=== PATIENT | female | born 1940 | race Hispanic/Latino ===

== ENCOUNTER 2019-06-03 17:05 | Observation (INO) | payer OTHER, MEDICARE ==
[~2019-06-03] VITALS: Ht 157.5 cm; Wt 40.9 kg
[~2019-06-03 17:05] MED LIST: ASPI-555 PO; CARB25TA3 PO; METO-408 PO; NITR0.4T50 SL; OMEP20TA25 PO; SIMV40TA59 PO; TOPI25CA5 PO
[2019-06-03] MEDS ORDERED: ONDANSETRON HCL 4 MG/2 ML VIAL ONE (17:45)
[2019-06-03] MEDS ORDERED: SODIUM CHLORIDE 0.9% 1000ML 1,000 ML IV ONE (17:46)
[2019-06-03 17:59] LABS: BASOPHILS % (AUTO) 0.3 % (0.0-5.0); EOSINOPHILS % (AUTO) 0.5 % (0.0-8.0); HEMATOCRIT 41.3 % (36-48); LYMPHOCYTES % (AUTO) 5.8 % (21.0-51.0); MEAN CORPUSCULAR HEMOGLOBIN 30.9 pg (27.0-33.0); MEAN CORPUSCULAR VOLUME 93.6 fL (79-99); MONOCYTES % (AUTO) 4.8 % (3.0-13.0); NEUTROPHILS % (AUTO) 88.6 % (40.0-77.0); PLATELET COUNT (AUTO) 152 K/uL (130-400); RED BLOOD CELL COUNT(AUTO) 4.41 MIL/uL (4.00-5.50); RED CELL DISTRIBUTION WIDTH 13.8 % (11.0-15.5); WHITE BLOOD COUNT (AUTO) 23.9 K/uL (4.8-10.8)
[2019-06-03 18:00] LABS: APPEARANCE,URINE Cloudy (CLEAR); BILIRUBIN,URINE Negative (NEGATIVE); COLOR,URINE Yellow (YELLOW); GLUCOSE, URINE (UA) Negative (NEGATIVE); KETONES,URINE 15 mg/dL (NEGATIVE); LEUKOCYTE ESTERASE ,URINE Trace (NEGATIVE); NITRATE,URINE Negative (NEGATIVE); OCCULT BLOOD,URINE Small (NEGATIVE); PROTEIN,URINE Trace mg/dL (NEGATIVE)
[2019-06-03 18:22] LABS: CREATININE 0.8 mg/dL (0.5-1.5); POTASSIUM 3.8 mmol/L (3.5-5.1)
[2019-06-03 18:26] LABS: ALBUMIN 3.7 g/dL (3.5-5.0); BACTERIA,URINE Few /HPF (None Seen); BILIRUBIN,TOTAL 0.7 mg/dL (0.2-1.0); CALCIUM OXALATE CRYSTALS,UR Moderate /LPF (None Seen); MUCUS,URINE Few LPF (None Seen); TOTAL PROTEIN, SERUM 6.7 g/dL (6.0-8.3)
[2019-06-03] MEDS ORDERED: IOHEXOL-350 75 ML VIAL IV ONE (19:00)
[2019-06-03] MEDS ORDERED: METRONIDAZOLE 500MG/100ML BAG 100 ML ONE (21:02)
[2019-06-03] MEDS: SODIUM CHLORIDE 0.9% 1000ML 1,000 ML IV SCH (21:30)
[2019-06-03] MEDS: LEVOFLOXACIN 500 MG/D5W 100 ML 100 ML IV SCH (22:00)
[2019-06-04] MEDS: METRONIDAZOLE 500MG/100ML BAG 100 ML IVPB SCH ×3 (02:00→18:11)
[2019-06-04] MEDS ORDERED: LEVOFLOXACIN 500 MG/D5W 100 ML 100 ML ONE (02:32)
[2019-06-04 04:27] LABS: BASOPHILS % (AUTO) 0.4 % (0.0-5.0); EOSINOPHILS % (AUTO) 1.3 % (0.0-8.0); HEMATOCRIT 34.4 % (36-48); LYMPHOCYTES % (AUTO) 10.8 % (21.0-51.0); MEAN CORPUSCULAR HEMOGLOBIN 31.3 pg (27.0-33.0); MEAN CORPUSCULAR HGB CONC 33.5 g/dL (32.0-36.0); MEAN CORPUSCULAR VOLUME 93.3 fL (79-99); MONOCYTES % (AUTO) 4.7 % (3.0-13.0); NEUTROPHILS % (AUTO) 82.8 % (40.0-77.0); PLATELET COUNT (AUTO) 132 K/uL (130-400); RED BLOOD CELL COUNT(AUTO) 3.69 MIL/uL (4.00-5.50); RED CELL DISTRIBUTION WIDTH 13.7 % (11.0-15.5); WHITE BLOOD COUNT (AUTO) 12.8 K/uL (4.8-10.8)
[2019-06-04 04:35] LABS: CREATININE 0.7 mg/dL (0.5-1.5); POTASSIUM 4.1 mmol/L (3.5-5.1)
[2019-06-04 04:40] LABS: ALBUMIN 2.7 g/dL (3.5-5.0); BILIRUBIN,TOTAL 0.6 mg/dL (0.2-1.0); TOTAL PROTEIN, SERUM 5.3 g/dL (6.0-8.3)
[2019-06-04] MEDS ORDERED: METRONIDAZOLE 500MG/100ML BAG 100 ML ONE (05:08)
[2019-06-04] MEDS ORDERED: SODIUM CHLORIDE 0.9% 1000ML 1,000 ML IV ONE (07:09)
[2019-06-04 08:20] VITALS: BP 117/68
[2019-06-04] MEDS ORDERED: ACETAMINOPHEN 325 MG TAB PO PRN ×2 (09:30)
[2019-06-04] MEDS ORDERED: MAG HYDROX/AL HYDROX/SIMETH ES 30 ML SUSP UDCUP PO PRN (09:30)
[2019-06-04] MEDS ORDERED: POTASSIUM CHLORIDE 20MEQ/100ML 100 ML IV PRN (09:30)
[2019-06-04] MEDS ORDERED: POTASSIUM CHLORIDE 20 MEQ ERTAB PO PRN (09:30)
[2019-06-04] MEDS ORDERED: DIPHENHYDRAMINE HCL 25 MG CAPSULE PO PRN (09:30)
[2019-06-04] MEDS ORDERED: DiphenhydrAMINE HCL 50 MG/ML VIAL IV PRN (09:30)
[2019-06-04] MEDS ORDERED: LIDOCAINE HCL-MPF 1% 2ML VIAL IJ PRN (09:30)
[2019-06-04] MEDS ORDERED: SIMV40TA59 PO (09:35)
[2019-06-04] MEDS ORDERED: CARB25TA3 PO (09:35)
[2019-06-04] MEDS ORDERED: PRAM0.25 PO (09:38)
[2019-06-04] MEDS ORDERED: AMAN100T PO (09:38)
[2019-06-04] MEDS ORDERED: METO5 PO (09:38)
[2019-06-04] MEDS: SODIUM CHLORIDE 0.9% 1000ML 1,000 ML IV SCH ×2 (09:58→20:32)
[2019-06-04 11:00] VITALS: BP 128/62
--- NOTE | 2019-06-04 13:00 | NUR ---
ORDER RECD FOR TRANSPORT INFO REVIEWED CHART; NOTE MADE OF INSURANCE. WLL DEFER THIS REQUEST; TOMORROW [facility] REP WILL COME- WILL ASK FOR SPECIFIC SERVICES AVAILABLE THROUGH [facility] INSURANCE Addendum: 06/04/19 at 1727 by KAREN CARBONE RN CM Amended: Links added.
--- NOTE | 2019-06-04 13:03 | NUR ---
DYSPHAGIA EVAL COMPLETED. -S/S OF ASPIRATION. RECOMMEND MECHANICAL SOFT/CHOPPED, THIN LIQUIDS; PILLS WHOLE WITH LIQUIDS. Addendum: 06/04/19 at 1304 by DALE AGUIRRE, [facility] Amended: Links added.
[2019-06-04] MEDS: METOCLOPRAMIDE 5 MG TABLET PO SCH ×2 (13:08→17:04)
[2019-06-04] MEDS ORDERED: METO25TA6 PO (14:11)
[2019-06-04] MEDS ORDERED: DIGO125T87 PO (14:11)
[2019-06-04] MEDS ORDERED: MIRT7.5T11 PO (14:11)
[2019-06-04] MEDS ORDERED: SIMV10TA6 PO (14:13)
[2019-06-04 16:00] VITALS: BP 127/91
[2019-06-04] MEDS ORDERED: PRAMIPEXOLE DI-HCL 0.25 MG TABLET PO SCH (17:00)
[2019-06-04 20:00] VITALS: BP 162/92
[2019-06-04] MEDS: METOPROLOL TARTRATE 25 MG TAB PO SCH ×2 (20:30→20:32)
[2019-06-04] MEDS: LEVOFLOXACIN 500 MG/D5W 100 ML 100 ML IV SCH (20:32)
[2019-06-04] MEDS ORDERED: SIMVASTATIN 10 MG TABLET PO SCH (21:00)
--- NOTE | 2019-06-04 22:00 | NUR ---
ACTIVITY Pt up ad graham,instructed to call for assistance,verbalized understanding.
[2019-06-05] VITALS: BP_SYST 134; BP_SYST 142; BP_DIAS 70; BP_DIAS 89
[2019-06-05] MEDS: METRONIDAZOLE 500MG/100ML BAG 100 ML IVPB SCH (01:52)
[2019-06-05 04:00] VITALS: BP 136/72
[2019-06-05 04:36] LABS: BASOPHILS % (AUTO) 0.6 % (0.0-5.0); EOSINOPHILS % (AUTO) 2.2 % (0.0-8.0); HEMATOCRIT 35.8 % (36-48); LYMPHOCYTES % (AUTO) 20.7 % (21.0-51.0); MEAN CORPUSCULAR HEMOGLOBIN 31.5 pg (27.0-33.0); MEAN CORPUSCULAR HGB CONC 33.5 g/dL (32.0-36.0); MONOCYTES % (AUTO) 6.6 % (3.0-13.0); NEUTROPHILS % (AUTO) 69.9 % (40.0-77.0); PLATELET COUNT (AUTO) 128 K/uL (130-400); RED CELL DISTRIBUTION WIDTH 13.5 % (11.0-15.5); WHITE BLOOD COUNT (AUTO) 8.5 K/uL (4.8-10.8)
[2019-06-05 04:46] LABS: CREATININE 0.6 mg/dL (0.5-1.5); POTASSIUM 3.5 mmol/L (3.5-5.1)
[2019-06-05] MEDS: METOCLOPRAMIDE 5 MG TABLET PO SCH ×2 (05:54→11:12)
[2019-06-05 07:00] VITALS: BP 134/70
[2019-06-05] MEDS ORDERED: LEVO500T2 PO (07:12)
[2019-06-05] MEDS ORDERED: METR250T PO (07:12)
[2019-06-05] MEDS ORDERED: CARBIDOPA PO SCH (09:00)
[2019-06-05] MEDS ORDERED: ENOXAPARIN SODIUM 30 MG/0.3 ML SQ SCH (09:00)
[2019-06-05] MEDS ORDERED: AMANTADINE HCL 100 MG CAPSULE PO SCH (09:00)
[2019-06-05] MEDS ORDERED: METRONIDAZOLE 250 MG TABLET PO SCH (09:00)
[2019-06-05] MEDS ORDERED: FAMOTIDINE 20MG TAB 20 MG TAB PO SCH (09:00)
[2019-06-05] MEDS ORDERED: LEVOFLOXACIN 500 MG TABLET PO SCH (09:00)
[2019-06-05] MEDS: METOPROLOL TARTRATE 25 MG TAB PO SCH (09:57)
[2019-06-05 11:00] VITALS: BP 137/75
[2019-06-05] MEDS: POTASSIUM CHLORIDE 10% ELIXIR 20 MEQ/15 ML UDCUP PO PRN ×2 (11:13→13:18)
--- NOTE | 2019-06-05 11:18 | NUR ---
Spoke with Dr. Davey's nurse Rose who stated that Dr. Davey will call in discharge rx for flagyl and levaquin to [facility].
--- NOTE | 2019-06-05 11:35 | NUR ---
CM NOTE CHART REVIEWED, PT IN OBS STATUS, PENDING DC. LIVES W FAMILY , DAUGHTER PROVIDES TRANSPORT,HOME SAFE AND ACCESSIBLE, DC PLNA HOME, DETAILED CM ASSESSMENT DEFERRED Addendum: 06/05/19 at 1808 by KAREN CARBONE RN CM Amended: Links added.
[2019-06-05] MEDS: SODIUM CHLORIDE 0.9% 1000ML 1,000 ML IV SCH (13:30)
--- NOTE | 2019-06-05 14:52 | NUR ---
RD NOTIFICATION DX: DEHYDRATION, ACUTE GASTROENTERITIS. HX: PARKINSON, HYPERLIPIDEMIA, DEMENTIA, HTN, CHRONIC MIGRAINE. DIET: HEART HEALTHY/ SOFT BLAND. BMI 16.5; CLASSIFIED UNDERWEIGHT. PO 25-50% AND HAS DECENT APPETITE PER PT. LABS: ALK PHOS 35, ALB 2.7, LIPASE 83. MEDS: LEVAQUIN, FLAGYL, LOPRESSOR, LANOXIN, ZOCOR, AMANTADINE, MIRAPEX, REGLAN, LOVENOX, PEPCID, MAALOX. SKIN INTACT, NO EDEMA. RD RECOMMENDS CONTINUE CURRENT DIET, ADD MECHANICAL SOFT/ CHOPPED TO DIET ORDER. OFFER ENSURE (VANILLA OR STRAWBERRY) BID SNACKS. RD WILL CONTINUE TO MONITOR AND FOLLOW UP NEEDED. THANK YOU. Addendum: 06/05/19 at [address] Amended: Links added.
[2019-06-06] MEDS ORDERED: DIGOXIN 125 MCG TABLET PO SCH (16:00)
== END 2019-06-05 14:40 | disposition home or self-care (01) ==
LOC: EDH 17:05 → EDHIP 21:10 → 3CH 06-04 08:19
PROVIDERS: ADMIT Internal Medicine; ATTEND Internal Medicine
DX: E86.0 Dehydration (principal); E46 Unspecified protein-calorie malnutrition; I13.10 Hypertensive heart and chronic kidney disease without heart failure, with stage 1 through stage 4 chronic kidney disease, or unspecified chronic kidney disease; N18.2 Chronic kidney disease, stage 2 (mild); E78.2 Mixed hyperlipidemia; G43.109 Migraine with aura, not intractable, without status migrainosus; I35.0 Nonrheumatic aortic (valve) stenosis; I47.1 Supraventricular tachycardia; I67.9 Cerebrovascular disease, unspecified; J10.1 Influenza due to other identified influenza virus with other respiratory manifestations; K21.9 Gastro-esophageal reflux disease without esophagitis; K31.84 Gastroparesis; K52.9 Noninfective gastroenteritis and colitis, unspecified; K56.7 Ileus, unspecified; M19.90 Unspecified osteoarthritis, unspecified site; R13.10 Dysphagia, unspecified; F32.9 Major depressive disorder, single episode, unspecified; G20 Parkinson's disease; F02.80 Dementia in other diseases classified elsewhere, unspecified severity, without behavioral disturbance, psychotic disturbance, mood disturbance, and anxiety; Z68.1 Body mass index [BMI] 19.9 or less, adult; Z86.73 Personal history of transient ischemic attack (TIA), and cerebral infarction without residual deficits; Z79.82 Long term (current) use of aspirin; Z82.49 Family history of ischemic heart disease and other diseases of the circulatory system; Z83.3 Family history of diabetes mellitus; Z90.710 Acquired absence of both cervix and uterus; Z88.0 Allergy status to penicillin; Z88.2 Allergy status to sulfonamides
CPT/HCPCS: 36415 ×3; 74177; 80048; 80053 ×2; 81001; 82948; 83690; 85025 ×3; 87040 ×2; 87804 ×2; 92610; 96365; 96366; 96367; 96372; 99284; G0378 ×42; J1650; J1956 ×2; J2405; J3490 ×4; J7030 ×3; Q9967

== ENCOUNTER 2020-12-30 12:50 | Emergency (ER) | payer OTHER, MEDICARE ==
[~2020-12-30 12:50] MED LIST changes: +AMAN100T PO; -ASPI-555 PO; +ASPI-556 PO; +DIGO125T71 PO; +LEVO500T2 PO; -METO-408 PO; +METO25TA6 PO; +METR250T PO; +MIRT7.5T11 PO; -OMEP20TA25 PO; +PRAM0.25 PO; +SIMV10TA97 PO; -SIMV40TA59 PO; -TOPI25CA5 PO
[2020-12-30 13:05] LABS: BASOPHILS % (AUTO) 0.5 % (0.0-5.0); EOSINOPHILS % (AUTO) 2.5 % (0.0-8.0); HEMATOCRIT 39.5 % (36-48); LYMPHOCYTES % (AUTO) 32.8 % (21.0-51.0); MEAN CORPUSCULAR HEMOGLOBIN 30.8 pg (27.0-33.0); MEAN CORPUSCULAR HGB CONC 32.4 g/dL (32.0-36.0); MEAN CORPUSCULAR VOLUME 95.2 fL (79-99); MONOCYTES % (AUTO) 6.4 % (3.0-13.0); NEUTROPHILS % (AUTO) 57.5 % (40.0-77.0); PLATELET COUNT (AUTO) 207 K/uL (130-400); RED BLOOD CELL COUNT(AUTO) 4.15 MIL/uL (4.00-5.50); RED CELL DISTRIBUTION WIDTH 13.2 % (11.0-15.5); WHITE BLOOD COUNT (AUTO) 9.9 K/uL (4.8-10.8)
[2020-12-30 13:20] LABS: CREATININE 0.8 mg/dL (0.5-1.5); POTASSIUM 4.2 mmol/L (3.5-5.1)
[2020-12-30 13:28] LABS: BILIRUBIN,TOTAL 0.4 mg/dL (0.2-1.0)
[2020-12-30 13:29] LABS: ALBUMIN 4.2 g/dL (3.5-5.0); TOTAL PROTEIN, SERUM 7.5 g/dL (6.0-8.3)
[2020-12-30 13:31] LABS: B-TYPE NATRIURETIC PEPTIDE 17 pg/mL (0-100)
== END 2020-12-30 17:13 | disposition home or self-care (01) ==
LOC: EDH 12:50
DX: R06.00 Dyspnea, unspecified (principal); G20 Parkinson's disease; R07.89 Other chest pain; Z20.822 Contact with and (suspected) exposure to COVID-19; I10 Essential (primary) hypertension; E78.00 Pure hypercholesterolemia, unspecified; Z88.2 Allergy status to sulfonamides; Z88.0 Allergy status to penicillin; Z95.1 Presence of aortocoronary bypass graft
CPT/HCPCS: 36415; 71045; 80053; 82550; 83605; 83880; 84484; 85025; 87426; 93005

== ENCOUNTER → 2024-02-22 | Outpatient (CLI) | payer OTHER, MEDICARE | END | disposition home or self-care (01) | LOC: RAH 09:43 | PROVIDERS: ATTEND Internal Medicine | DX: M25.551 Pain in right hip (principal) | CPT/HCPCS: 73502 ==

== ENCOUNTER → 2024-04-10 | Outpatient (CLI) | payer OTHER, MEDICARE | END | disposition home or self-care (01) | LOC: RAH 08:14 | PROVIDERS: ATTEND Internal Medicine | DX: N28.1 Cyst of kidney, acquired (principal); R11.0 Nausea; R63.4 Abnormal weight loss | CPT/HCPCS: 76700 ==

== ENCOUNTER 2024-06-19 20:45 | Emergency (ER) | payer OTHER, MEDICARE ==
[~2024-06-19] VITALS: Ht 154.9 cm; Wt 45.4 kg
[2024-06-19] MEDS: acetaMINOPHEN 500 MG TABLET PO ONE (21:13)
[2024-06-19 23:04] VITALS: BP 165/96; PULSE 86; RESP 18; TEMP 98.1; O2SAT 96
== END 2024-06-19 23:07 | disposition home or self-care (01) ==
LOC: EDH 20:45
DX: S00.83XA Contusion of other part of head, initial encounter (principal); S60.222A Contusion of left hand, initial encounter; F02.80 Dementia in other diseases classified elsewhere, unspecified severity, without behavioral disturbance, psychotic disturbance, mood disturbance, and anxiety; G20.A1 Parkinson's disease without dyskinesia, without mention of fluctuations; Z79.82 Long term (current) use of aspirin; Z79.899 Other long term (current) drug therapy; Z88.0 Allergy status to penicillin; Z88.2 Allergy status to sulfonamides; Z95.2 Presence of prosthetic heart valve; Z98.890 Other specified postprocedural states; W07.XXXA Fall from chair, initial encounter; Y93.89 Activity, other specified; Y92.89 Other specified places as the place of occurrence of the external cause; Y99.8 Other external cause status
CPT/HCPCS: 70450; 70460; 73130